=== PATIENT | male | born 1975 | race Caucasian/White ===

== ENCOUNTER 2021-11-09 13:07 | Emergency (ER) | payer BC, SELFPAY ==
[2021-11-09 13:25] VITALS: BP 117/85; PULSE 86; RESP 18; TEMP 36.6; O2SAT 100; BMI 25.8
--- NOTE | 2021-11-09 13:41 | CRLHL7_ITS ---
For Patients: As a result of the Cures Act, medical imaging exams and procedure reports are released immediately into your electronic medical record. You may view this report before your referring provider. If you have questions, please contact your health care provider. Indication: FALL, PAIN WITH WALKING Technique: Left knee 3 views. Comparison: None. Findings: Bones: Alignment is normal. No fractures or bone lesions. Joint spaces: Joint spaces are well maintained. No degenerative changes. No sign of joint effusion. Soft tissues: Unremarkable. Impression: No evidence of left knee fracture. Dictated by Kenroy Dewitt MD @ 11/09/2021 2:23:05 PM (Electronically Signed)
--- NOTE | 2021-11-09 13:41 | CRLHL7_ITS ---
For Patients: As a result of the Century Cures Act, medical imaging exams and procedure reports are released immediately into your electronic medical record. You may view this report before your referring provider. If you have questions, please contact your health care provider. INDICATION: Fall, pain with walking. TECHNIQUE: Left tibia and fibula, 2 views. COMPARISON: None. FINDINGS: No acute fracture identified. The knee and ankle appear normally aligned. Soft tissues are unremarkable. IMPRESSION: No acute findings. Dictated by Vanessa Givens MD @ 11/09/2021 2:26:46 PM (Electronically Signed)
[2021-11-09 14:42] VITALS: BP 110/78; PULSE 83; RESP 16
--- NOTE | 2021-11-09 14:53 | ED_ITS ---
HPI - General Adult General Date Seen: 11/09/21 Chief complaint: Extremity Pain/Injury, Lower Stated complaint: Fell off building injured LT leg Time Seen by Provider: 11/09/21 13:12 Source: patient and RN notes reviewed Mode of arrival: ambulatory Limitations: no limitations History of Present Illness HPI narrative: Patient is a 46-year-old male that fell off about a 10-12 foot ladder on November 04. He fell onto gravel on his left side. There was no loss of consciousness, he has had no headaches, no neck pain or back pain. He has had no abdominal pain. He notes pain in his upper lower extremity when he attempts to walk. Feels like it is in the leg. There is no numbness tingling. She has not noted any swelling. He does not feel like this is in the knee although later when I was talking to him when he states when he goes to bend his knee to take a step it does feel funny. He had presented to urgent care but they sent him here. Related Data Home Medications Medication Instructions Recorded Confirmed No Known Home Medications 11/09/21 11/09/21 Allergies Allergy/AdvReac Type Severity Reaction Status Date / Time No Known Drug Allergies Allergy Verified 11/09/21 14:43 Review of Systems Status of ROS: Reports: 10 or more systems reviewed and unremarkable except as noted in History and below PFSH PFSH Social History Smoking Status: Current every day smoker What tobacco products do you use: cigarettes Smoking packs per day: 1 Smoking cigarettes per day: 20.0 Years smok ed: 33 Smoking pack-years: 33.00 Do you use any of these nicotine containing products: None Second hand tobacco smoke exposure: Yes How often do you have a drink containing alcohol: 4 or more times a week How many standard drinks containing alcohol do you have on a typical day: 5 or 6 How often do you have six or more drinks on one occasion: Daily or almost daily AUDIT-C Alcohol total score: 10 Non-prescribed substance use: denies use service: No Exam Const: Vital Signs, click to edit/add: Vital Signs - 24 hr 11/09/21 13:25 11/09/21 14:42 Temperature 97.8 F Pulse Rate [Pulse Oximeter] 86 83 Respiratory Rate 18 16 Blood Pressure [Le ft Upper Arm] 117/85 110/78 Pulse Oximetry 100 Oxygen Delivery Me thod Room Air Documenting provider has reviewed patient's vital signs: yes Common normals: no apparent distress, oriented x3, no limitations, healthy appearing, alert and well nourished General appearance: cooperative, comfortable and well kempt Nutritional appearance: thin HENMT: Common normals: normocephalic, head/scalp atraumatic, hearing grossly normal bilaterally and external ears normal Head and scalp: normocephalic and atraumatic External ear: external ears normal Eye: Common normals: PERRL, EOMs intact bilaterally, conjunctivae normal and no scleral icterus Conjunctiva: conjunctiva(e) normal Pupil: PERRL Neck & C-Spine: Common normals: full ROM, no lymphadenopathy, supple, no meningeal signs and thyroid normal Thyroid: thyroid normal Other: No cervical midline tenderness of his neck GI: Common normals: Normal to inspection, nondistended, normoactive bowel sounds present, soft to palpation and non-tender Palpation: soft Extremity: Other: His left lower extremity is inspected. There is absolutely no traumatic skin changes. There is no swelling. Neurovascular is intact. He has full range of motion about his knee about his ankle. I cannot reproduce his pain. He is not clinically tender palpably over the proximal fibula. I cannot reproduce his pain on examination. He states the pain happens when he walks and points to the upper outer lateral lower extremity. There is no swelling of his lower extremity. Neuro: Common normals: oriented x3 Sensorium/orientation: alert Meningeal signs: no meningeal signs Psych: Appearance: well kempt Course Course Hospital Course: Will obtain left knee x-rays and left tib-fib images. Reevaluation(s) Reevaluation #1: Reviewed the negative x-rays with Joel. He is somewhat clinically tender on re- examination along that proximal fibula. Initially he did not seem to be so during my 1st examination but when I re-evaluated he states it is sore there and it does feel sore when he walks. I did discuss with him even though there might not be a fracture there could be a bone contusion from the fall. The impacted on the outside of that leg certainly could have been trauma to the bone in the form of bruising. He states his dog just had that. He would need an MRI for fu rther evaluation of that type of trauma which we do not order emergently through the ER. He is feeling like the knee is unstable and like it could buckle when I talked to him further about his knee. Thus will give him a knee immobilizer. He states his crutches and a walker at home from prior back surgery. Time: 15:08 Vital Signs Vital signs: Initial Vital Signs Temperature 97.8 F 11/09/21 13:25 Temperature Source Temporal Artery Scan 11/09/21 13:25 Pulse Rate 86 11/09/21 13:25 Pulse Rhythm 11/09/21 13:25 Respiratory Rate 18 11/09/21 13:25 Blood Pressure 117/85 11/09/21 13:25 Blood Pressure Mean 95 11/09/21 13:25 Pulse Oximetry 100 11/09/21 13:25 Oxygen Delivery Method 11/09/21 13:25 Vital Signs Temperature 97.8 F 11/09/21 13:25 Pulse Rate 86 11/09/21 13:25 Respiratory Rate 18 11/09/21 13:25 Blood Pressure 117/85 11/09/21 13:25 Pulse Oximetry 100 11/09/21 13:25 Oxygen Delivery Method 11/09/21 13:25 Temperature 97.8 F 11/09/21 13:25 Pulse Rate 83 11/09/21 14:42 Respiratory Rate 16 11/09/21 14:42 Blood Pressure 110/78 11/09/21 14:42 Pulse Oximetry 100 11/09/21 13:25 Oxygen Delivery Method 11/09/21 13:25 Medical Decision Making Imaging Data Left knee: Attestation: I have reviewed the pertinent imaging results. My impression: I do not appreciate any acute fracture on my preliminary read. Radiologist's impression: Patient: JOEL SHABAZZ Facility:?[facility] Patient ID:?[id number] Site Patient ID:?[id number]. Site :?[id number] Study:?XRay Knee Left 3 VIEW-11/09/2021 2:05:04 PM Ordering Physician:Angela Coronado Final Report: Indication: FALL, PAIN WITH WALKING Technique: Left knee 3 views. Comparison: None. Findings: Bones: Alignment is normal. No fractures or bone lesions. Joint spaces: Joint spaces are well maintained. No degenerative changes. No sign of joint effusion. Soft tissues: Unremarkable. Impression: No evidence of left knee fracture. Dictated by Kenroy Dewitt MD @ 11/09/2021 2:23:05 PM (Electronic Signature) Left tib-fib x-ray: Attestation: I have reviewed the pertinent imaging results. My impression: No acute fracture on my preliminary read. Radiologist's impression: Patient: JOEL SHABAZZ Facility:?[facility] Patient ID:?[id number] Site Patient ID:?[id number]. Site :?[id number] Study:?XRay Extremity Left TIB/FIB 2V-11/09/2021 2:05:29 PM Ordering Physician:?Sheila Coronado Final Report: INDICATION: Fall, pain with walking. TECHNIQUE: Left tibia and fibula, 2 views. COMPARISON: None. FINDINGS: No acute fracture identified. The knee and ankle appear normally aligned. Soft tissues are unremarkable. IMPRESSION: No acute findings. Dictated by Vanessa Givens MD @ 11/09/2021 2:26:46 PM Critical Care Time Critical Care Time Critical Care Time: No Discharge Plan Discharge Clinical Impression: Acute pain of left lower extremity, Fall Patient Disposition: Home, Self-Care Condition: Stable Instructions: Leg Pain (ED) Additional Instructions: Can use Tylenol and/or ibuprofen as needed for pain control. Use knee immobilizer for stability when you are up and ambulating. You can use crutches or walker, whichever feels more stable with ambulation. Call the orthopedic clinic at [phone] to get scheduled for followup, if you have ongoing symptoms I do feel they may consider MRI imaging. Activity Level: Activity as Tolerated Prescriptions: No Action No Known Home Medications Follow Up/Referrals: Angelica Mcintyre PA-C [Primary Care Provider] - Stand Alone Forms: [employer] Info Instructions
--- OUTSIDE RECORDS SUMMARY | 2021-11-09 14:55 | XMS_ITS | Clinical Summary ---
:1975 Author Organization [facility] [place] [address] Care Team Providers Name Role Phone Angelica Mcintyre Primary Care Provider [phone] Allergies No known active allergies Medications Medication Sig Dispensed Refills Start Date End Date Status cyclobenzaprine Take 1 tablet by 60 tablet 0 05/30/2018 Active (FLEXERIL) 10 mg mouth 3 times tabletIndications: daily. Strain of muscle, fascia and tendon of lower back, initial encounter HYDROcodone-acetaminoph Take 1 tablet by 42 tablet 0 9 Active en, 5-325 mg, (LORTAB mouth 3 times 5-325) per daily if needed tabletIndications: for Pain Max Lumbar radiculopathy, acetaminophen Weakness of right lower dose: 4000 mg in extremity 24 hrs. methylPREDNISolone Take by mouth as 1 Package 0 05/30/2018 Active (MEDROL, ARASELI,) 4 mg instructed per tabletIndications: packaging. Strain of muscle, fascia and tendon of lower back, initial encounter, Lumbar radiculopathy, Weakness of right lower extremity Active Problems Problem Noted Date Encounter for long-term (current) use of other medicat ions 07/21/2011 Multiple pulmonary nodules 10/14/2010 Overview: Noted on chest CT on 07-11-10. Low back pain 07/11/2010 Overview: Recurrent injuries. Chronic pain. Acute exacerbation 06/2010 due to heavy lifting. Prednisone and vicodin relieves. Hemoptysis 07/11/2010 Overview: Occurs following syncopal episodes since ~2001, frequency increasing. Symptoms resolve in < 1hr usually. Syncope and collapse 07/11/2010 Overview: Episodic since ~2001, usually after tire d and with alcohol use. Tends to occur in clusters and then remit for a few months. Tobacco use disorder 07/11/2010 Overview: Smokes ~ 1 ppd since 1998. Transaminitis 07/11/2010 Overview: Labs ALT>AST Multiple sclerosis Overview: - Diagnosed around 1999, every 6-9 month s - Last flare around 01/2010 - Tried Copaxone, did not like side effe cts, does not have neurologist that follows Immunizations Name Administration Dates Next Due MMR 11/04/1993 Td (Age >=7 Years) 02/08/2008 Family History Medical History Relation Name Comments Good Health Brother 4 Other Brother 5 Brain Tumor Other Brother 6 , hit by train, age 19. Heart Disease Father Stents x 2, firs t ~45 Heart Disease Maternal Grandfather CA, heart f ailure, , age 49. Cancer Maternal Grandmother stomach can cer, , age 74. Good Health Mother Diabetes Paternal Grandfather Diabetes Paternal Grandmother Good Health Sister 2 Relation Name Status Comments Brother 1 Alive Brother 2 Alive Brother 3 hit by train at age 19 Brother 4 Brother 5 Brother 6 Father Alive Maternal Grandfather Maternal Grandmother Mother Alive Paternal Grandfather Paternal Grandmother Sister 1 Alive Sister 2 Social History Tobacco Use Types Packs/Day Years Used Date Current Every Day Smoker Cigarettes 1 12 Smokeless Tobacco: Never Used Tobacco Cessation: Ready to Quit: No; Co unseling Given: Yes Comments: Smokes 1 ppd. Alcohol Use Standard Drinks/Week Comments Yes 25 (1 standard drink = 0.6 oz pure regul ar use, heavy weekend use alcohol) (6-20 per weekend) Alcohol Habits Answer Date Recorded How often do you have a drink Not asked containing alcohol? How many drinks containing alcohol do Not asked you have on a typical day when you are drinking? How often do you have six or more Not asked drinks on one occasion? Comment: regular use, heavy weekend use 1 (6-20 per weekend) Sex Assigned at Date Recorded Not on file Obstetrics History Last Filed Vital Signs Vital Sign Reading Time Taken Comments Blood Pressure 106/87 12/26/2018 10:00 PM HEMATOLOGY TECHNICIAN Pulse 83 12/26/2018 10:00 PM HEMATOLOGY TECHNICIAN Temperature 36.4 ??C (97.5 ??F) 12/26/2018 7:41 PM HEMATOLOGY TECHNICIAN Respiratory Rate 18 12/26/2018 7:41 PM HEMATOLOGY TECHNICIAN Oxygen Saturation 97% 12/26/2018 10:00 PM HEMATOLOGY TECHNICIAN Inhaled Oxygen Concentration - - Weight 73.1 kg (161 lb 2.5 oz) 12/26/2018 7:41 PM HEMATOLOGY TECHNICIAN Height 172 cm (5' 7.72) 12/26/2018 7:41 PM HEMATOLOGY TECHNICIAN Body Mass Index 24.71 12/26/2018 7:41 PM HEMATOLOGY TECHNICIAN Plan of Treatment Health Maintenance Due Date Last Done Comments COVID-19 vaccine series (#1) 03/23/1977 Tdap 09/21/1987 Hepatitis C screening for age 0809/20/1994 18-79 Depression screening for age 12+ 01/05/2018 01/05/2017 BMI (ht and wt on same day) for 05/31/2019 05/30/2018, 10/09, age 18+ 01/05/2017, Additional history exists Tetanus booster 07/31/2020 07/31/2010 ([facility]), 02/08/2008 Colonoscopy through age 75 2021 Lipids for age 45-75 2021 Influenza for age 9-49 10/08/2021 Results Not on filefrom Last 3 Months Insurance Payer Benefit Plan Subscriber ID Effective Dates Phone Address Type / Group WC WORKERS WC WORKERS [id number]-Prese [phone] [address] [place] [address] (Home) [place] [id number] JOEL SHABAZZ [employer] [address] (Home) [place] [phone] [id number] (Work) [facility]/Robert 02[birth year][address] [phone] [place], [place] (Work) [id number] Advance Directives Latest Code Status on File Code Status Date Activated Date Inactivated Comments Full Code 10/16/2010 11:38 AM 10/18/2010 3:06 PM Full Code 10/16/2010 6:28 AM 10/16/2010 9:46 AM Full Code 07/11/2010 11:55 AM 07/11/2010 9:46 PM Care Teams Frozen Food Selector Relationship Specialty Start Date End Date Angelica Mcintyre PA PCP - General 10/20/09 [address] [place] [address]
--- NOTE | 2021-11-09 15:17 | ED.NURSE ---
24 knee immobilizer applied to pt L leg.
== END 2021-11-09 15:20 | disposition home or self-care (01) ==
PROVIDERS: Emergency Provider Family Medicine; PCP Physician Assistant Medical
DX: S70.12XA Contusion of left thigh, initial encounter (principal); W11.XXXA Fall on and from ladder, initial encounter; Y93.9 Activity, unspecified; Y92.9 Unspecified place or not applicable; Y99.9 Unspecified external cause status
CPT/HCPCS: 73562; 73590; 99283